=== PATIENT | female | born 1990 | race Caucasian/White ===

== ENCOUNTER 2019-04-21 14:08 | Emergency (ER) | payer BC ==
[~2019-04-21] VITALS: Ht 167.6 cm; Wt 72.1 kg
[2019-04-21 14:34] VITALS: Ht 167.6 cm; Wt 72.1 kg
[2019-04-21 18:22] VITALS: BP 124/83
== END 2019-04-21 18:22 | disposition home or self-care (01) ==
LOC: ED 14:08
DX: J11.1 Influenza due to unidentified influenza virus with other respiratory manifestations (principal)
CPT/HCPCS: J2405; J7030